=== PATIENT | female | born 1970 | race Caucasian/White ===

== ENCOUNTER → 2016-10-07 | Outpatient (CLI) | payer OTHER ==
[~2016-10-07] MED LIST: MOTRIN800 MG PO; VIBRAMYCIN100 MG PO
--- NOTE | ~2016-10-07 | ENPV ---
Carotid Duplex Study Demographics Patient Name BRANDEE WILLOUGHBY Date of Study 10/07/2016 Patient Number [id number] Gender Female Date of 1970 Age 45 Visit Number [id number] Height Accession Number [id number] Weight Room Number BSA BMI Referring Sylwia Webb Interpreting Jamal Bright MD Physician Physician Physician Ordering Sylwia Webb Pole Classifier Physician Wage Hand Gulshan Jim T, [facility] Conclusions Summary No prior examination. The right internal carotid artery has mild, 1-39%, plaque and stenosis. The left internal carotid artery has mild, 1-39%, plaque and stenosis. The right vertebral artery is present with antegrade flow. The left vertebral artery is present with antegrade flow. Procedure Type of Study: Cerebral:Carotid, Carotid Doppler Bilateral. Indications for Study:Facial Weakness and Vertigo. Appropriate Use Criteria:6 Blood Pressure:Right arm 116/79 mmHg.Left arm 112/73 mmHg. Patient Status:Routine. Study Location:Vascular Lab. Technical Quality:Good visualization. Velocities are measured in cm/s ; Diameters are measured in cm Carotid Right Measurements Carotid Left Measurements + +--------+--------+ + + + +--------+ --------+ + + !Location !PSV !EDV !Angle !%Stenosis ! !Location !PSV ! EDV !Angle !%Stenosis ! + +--------+--------+ + + + +--------+ --------+ + + !Prox CCA !96 !25 !60 ! ! !Prox CCA !128 ! 31 !60 ! ! + +--------+--------+ + + + +--------+ --------+ + + !Dist CCA !94 !33 !60 ! ! !Dist CCA !107 ! 40 !60 ! ! + +--------+--------+ + + + +--------+ --------+ + + !Prox ICA !82 !35 !60 ! ! !Prox ICA !95 ! 35 !60 ! ! + +--------+--------+ + + + +--------+ --------+ + + !Dist ICA !96 !44 !60 ! ! !Dist ICA !61 ! 25 !50 ! ! + +--------+--------+ + + + +--------+ --------+ + + !Prox ECA !62 ! !60 ! ! !Prox ECA !130 ! !60 ! ! + +--------+--------+ + + + +--------+ --------+ + + !Vertebral !65 ! !60 ! ! !Vertebral !54 ! !60 ! ! + +--------+--------+ + + + +--------+ --------+ + + !Subclavian !101 ! ! ! ! !Subclavian !106 ! ! ! ! + +--------+--------+ + + + +--------+ --------+ + + - There is antegrade vertebral flow noted on the right side. - There is antegrade verte bral flow noted on the left side. - Add'l Measurements:ICAPSV/CCAPSV 1.ICAEDV/CCAEDV 1.74. - Add'l Measurements:ICAPS V/CCAPSV 0.74.ICAEDV/CCAEDV 1.11. Signature dtt: KESHIA REESE dtd: 10/07/16 1401 Physician Self Edit
== END | disposition disaster alternative care site (69) ==
LOC: GCAR 13:40
DX: R29.810 Facial weakness (principal); F48.1 Depersonalization-derealization syndrome; D68.51 Activated protein C resistance; R51 Headache; R42 Dizziness and giddiness

== ENCOUNTER → 2016-12-08 | Outpatient (CLI) | payer OTHER | END | disposition disaster alternative care site (69) | LOC: GBCOE 13:10 | DX: R92.8 Other abnormal and inconclusive findings on diagnostic imaging of breast (principal); N60.01 Solitary cyst of right breast; N63 Unspecified lump in breast | CPT/HCPCS: G0206; G0279 ==